=== PATIENT | female | born 1945 | race Caucasian/White ===

== ENCOUNTER → 2021-11-08 14:17 | Outpatient (CLI) | payer MEDICARE, OTHER, SELFPAY ==
--- NOTE | 2021-11-08 | DI.MRI.S_ITS ---
PROCEDURE: MR HEAD/BRAIN WO/W CON INDICATIONS: Other amnesia and abnormalities of gait TECHNIQUE: Noncontrast axial T1 spin echo, axial T2 fast spin echo, sagittal and axial FLAIR, coronal T2 fast spin echo, axial gradient echo, axial diffusion and ADC through the brain. After the administration of contrast, axial and coronal and sagittal 3D VIBE or T1 spin echo with fat saturation through the brain. COMPARISON: [facility], MR, BRAIN WITHOUT CONTRAST, 07/23/2016, 14:21. FINDINGS: Image quality: Excellent. CSF Spaces: Basal cisterns are patent. No extra-axial fluid collections. Ventricles are normal in size and shape. Brain: In the left frontal precentral gyrus near the vertex, there is a focus of popcorn like signal with associated old blood products measuring approximately 1 cm in total, unchanged from the prior exam 2017. Mild atrophy and white matter chronic ischemic change remains stable as well. Otherwise, there is no midline shift. No abnormal intracranial enhancement. The brainstem appears normal. Diffusion-weighted images demonstrate no acute infarct. Normal intravascular flow voids are present. Skull and face: Calvarial marrow is normal in signal. Orbits appear normal. Sinuses: Sinuses and mastoids appear clear. IMPRESSION: Stable left frontal cavernous hemangioma Atrophy and chronic ischemic change without acute infarct, hemorrhage or mass lesion Approved by: Erwin Chen M.D. on 11/09/2021 at 8:40
== END ==
PROVIDERS: PCP Family Medicine; Referring Provider Family Medicine; Visit Provider Family Medicine
DX: R26.89 Other abnormalities of gait and mobility (principal); R41.3 Other amnesia
CPT/HCPCS: 70553; A9579

== ENCOUNTER 2023-09-11 23:00 | Observation (INO) | payer MEDICARE, OTHER, SELFPAY ==
[2023-09-11 23:12] VITALS: BP 192/82; PULSE 49; RESP 18; TEMP 36.2; O2SAT 98; BMI 22.3
--- NOTE | 2023-09-11 23:15 | PC.NURSE ---
pt requesting to waiting outside in car, cellphone number given [phone] will call when room available
[2023-09-12] VITALS (38 sets, daily range): BP systolic 125–205; BP diastolic 68–134; PULSE 36–62; RESP 14–44; TEMP 36.3–36.8; O2SAT 95–100; BMI 22.3
--- NOTE | 2023-09-12 02:20 | PC.NURSE ---
pt called to place in room
--- NOTE | 2023-09-12 03:22 | ED.EYEPROB ---
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 reason in past she wasnot taking any aspirin) Dr. Aguayo patient seen evaluated by myself. Awake alert no issue. She does have heart rate in 36 but is completely asymptomatic and heart rate improved to 77. Caregiver at bedside reports that her memory issues and mental status are at baseline. Patient reports that she has had no further issues with her vision since she has been here. MRI is concerning for small acute to subacute infarction involving posterior and high frontal lobe cortex. There was concern an issue for antiplatelet medication with thrombocytopenia. However her platelets today are 130,000. Aspirin given Dr. Zambrano accepts patient. Critical Care Time <Luis Miguel Arshad MD - Last Filed: 09/12/23 23:23> Critical Care Time Critical Care Time: Yes Total Critical Care Time: 35 Attestation: The high probability of a clinically significant, sudden or life threatening deterioration of the [cerebrovascular, neurologic, cardiopulmonary] system(s) required my full and direct attention, intervention and personal management. The aggregate critical care time was [35] minutes. This time is in addition to time spent performing reported procedures but includes the following: [x] Data Review and interpretation [x] Patient assessment and monitoring of vital signs [x] Documentation [x] Medication orders and management Discharge Plan Departure Patient Disposition: Admitted as Observation Clinical Impression: CVA (cerebral vascular accident) Admit Date/Time: 09/12/23 10:13 Admit Provider: Wayne Zambrano
--- NOTE | 2023-09-12 03:25 | DI.CT.S_ITS ---
PROCEDURE: CT ANGIO HEAD AND NECK INDICATIONS: right vision loss TECHNIQUE: After the administration of intravenous contrast, 1 mm thick sections acquired from the aortic arch through the [place]. 3-dimensional udlysmp-qqvdkzfom-nypsxakqbt (MIP) and/or volume rendering reformats were acquired of the central intracranial vasculature and neck separately. For radiation dose reduction, the following was used: automated exposure control, adjustment of mA and/or kV according to patient size. COMPARISON: Same-day head CT noncontrast 06/13/2023. FINDINGS: Image quality: Diagnostic. BRAIN: CSF spaces: Ventricles are normal in size and shape. Basal cisterns are patent. No extra-axial fluid collections. Brain: Redemonstration of punctate calcification left vertex with adjacent 6 millimeter cortical hyperdensity. No other significant abnormality of the brain can be seen. Skull and face: Calvarium and facial bones appear intact, without suspicious lesions. Orbits appear normal. Sinuses: Sinuses and mastoids are clear. HEAD CT ANGIOGRAPHY: Anterior circulation: Intracranial internal carotid arteries are normal in size and flow. The flow within the paired anterior cerebral arteries is normal and symmetric. The flow within the middle cerebral arteries is normal and symmetric. The anterior communicating artery is seen. No aneurysms are seen. Posterior circulation: Visualized portions of the vertebral arteries demonstrate normal caliber, and join to form a normal appearing basilar artery. Flow within the posterior cerebral arteries is normal and symmetric. No aneurysms are seen. NECK CT ANGIOGRAPHY: Carotid system: The great vessels demonstrate a conventional anatomy as they arise from the aortic arch. The origins of the common carotid arteries appear patent. The common carotid arteries demonstrate normal caliber and courses. The bifurcation regions are both widely patent. The internal carotid arteries demonstrate normal calibers and courses. Posterior circulation: The origins of the vertebral arteries both appear widely patent. The more superior extracranial portions of both vertebral arteries also demonstrate normal courses and calibers. They join to form a normal appearing basilar artery. Soft tissues: Visualized neck soft tissues demonstrate no suspicious abnormalities. Bones: No suspicious bony lesions. Visualized cervical spine appears normally aligned. IMPRESSION: No significant intracranial arterial abnormality is seen. No significant abnormality is seen within the arteries of the neck. Any quantitative measurements of stenosis were performed using NASCET criteria. Approved by: Briana Dey M.D.,Ph.D. on 09/12/2023 at 8:18
[2023-09-12 04:26] LABS: Add Manual Diff / Slide Review NO; Basophils Absolute Auto 0 /uL (0-100); Basophils Percent Auto 0.4 % (0-2); Eosinophils Absolute Auto 200 /uL (0-450); Eosinophils Percent Auto 3.3 % (2-4); Hematocrit 38.3 % (36-46); Hemoglobin 12.7 g/dL (12.0-16.0); Lymphocytes Absolute Auto 1300 /uL (1100-4500); Lymphocytes Percent Auto 28.6 % (25-40); Mean Corpuscular HGB Conc 33.1 % (30-36); Mean Corpuscular Hemoglobin 29.8 PG (26-34); Mean Corpuscular Volume 89.9 fL (80-100); Monocytes Absolute Auto 600 /uL (0-900); Monocytes Percent Auto 12.7 % (3-14); Neutrophils Absolute Auto 2600 /uL (1500-7000); Platelet Count 131 X10^3/uL (150-400); Red Blood Cell Count 4.26 X10^6/uL (4.0-5.2); Red Cell Distribution Width 12.7 % (11.6-14.8); White Blood Cell Count 4.7 X10^3/uL (4.5-11.0)
--- NOTE | 2023-09-12 04:30 | EKG_ITS ---
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
[2023-09-12 04:35] LABS: PTT Partial Thromboplastin Tim 34 SECONDS (25.1-36.5)
[2023-09-12 04:37] LABS: Alanine Aminotransferase 20 IU/L (<35); Albumin 4.2 g/dL (3.5-5.0); Albumin Globulin Ratio 1.8 (1.0-2.8); Alkaline Phosphatase 70 U/L (38-126); Aspartate Aminotransferase 31 IU/L (14-36); BUN Creatinine Ratio 20.4 (6-22); Bilirubin Total 0.4 mg/dL (0.2-1.3); Blood Urea Nitrogen 20 mg/dL (7-17); Calcium 9.3 mg/dL (8.4-10.2); Carbon Dioxide 26 mmol/L (22-32); Chloride 107 mmol/L (98-107); Creatine Kinase 173 U/L (30-135); Estimated Glomerular Filt Rate 59 mL/min (>60); Ethanol (ETOH) < 10 mg/dL; Globulin 2.3 g/dL (1.7-4.1); Glucose 92 mg/dL (80-110); HEMOLYSIS 16 (0-50); Potassium 3.8 mmol/L (3.4-5.1); Sodium 138 mmol/L (137-145); Total Protein 6.5 g/dL (6.3-8.2)
[2023-09-12 04:48] LABS: Troponin I < 0.012 ng/mL (0.01-0.034)
--- NOTE | 2023-09-12 06:27 | DI.MRI.S_ITS ---
PROCEDURE: MR HEAD/BRAIN WO CON INDICATIONS: transient total right vision loss TECHNIQUE: Non-contrast axial T1 spin echo, axial T2 fast spin echo, sagittal and axial FLAIR, coronal T2 fast spin echo, axial gradient echo, axial diffusion and ADC through the brain. COMPARISON: [facility], CT, CT ANGIO HEAD AND NECK, 09/12/2023, 5:40. [facility], CT, CT HEAD/BRAIN WO CON, 09/12/2023, 3:58. FINDINGS: Image quality: Excellent. CSF spaces: Ventricles appear symmetric in size and shape. Basal cisterns are patent. No extra-axial fluid collections. Brain: No intracranial bleeds or mass effects. There is cerebral volume loss for age. There are periventricular and deep white matter chronic small vessel ischemic changes. Brainstem appears normal. Diffusion-weighted images show small foci of restricted diffusion involving height left frontal lobe. No other area of abnormal restricted diffusion is seen. No chronic ischemic insults. Normal intravascular flow voids are present. Skull and face: Calvarial bone marrow is normal in signal. Orbits are normal. Sinuses: Sinuses and mastoids are clear. IMPRESSION: 1. Finding is concerning for tiny foci of acute to subacute infarction involving posterior left high frontal lobe cortex. No other area of restricted diffusion. No acute intracranial bleed, midline shift or mass effect. 2. Age related volume loss. Dictated by: Larry Sears M.D. on 09/12/2023 at 9:45 Approved by: Laryr Sears M.D. on 09/12/2023 at 9:50
--- NOTE | 2023-09-12 06:28 | DI.ECHO.S_ITS ---
[facility]+ [facility] : : [address] : : [place] : : [id number] : : Phone: [phone] Echocardiogram Report + + :Name: ALEXIS GERMAIN Study Date: 09/13/2023 Height: 64 in : :Hospital ReadingLocation: Weight: 130 lb : : Gender: Female BSA: 1.6 m2 : :: 1945 Age: 78 yrs BP: 128/74 mmHg: :Reason For Study: LOST VISION IN RIGHT EYE : :Ordering Physician: PATRICA, : :EILEEN Performed By: Chandler Cortez : :Referring: EILEEN BURCIAGA : + + Interpretation Summary 1. The left ventricle contractility is normal. Estimated ejection fraction is greater than 55% with no segmental wall motion abnormalities. Mild concentric LVH. Grade 1 diastolic dysfunction present. 2. The right ventricular contractility is normal. 3. All cardiac chambers are of normal size. 4. There is mild aortic insufficiency noted without significant stenosis. 5. No obvious intracardiac shunts noted. 6. No obvious intracardiac masses nor thrombi appreciated. 7. No hemodynamically significant pericardial effusion present. Prominent anterior fat pad present. 8. The ascending aorta is mildly dilated without obvious dissection. Conclusion: Normal biventricular systolic function without significant valvular abnormalities Procedure: A two-dimensional transthoracic echocardiogram with color flow and Doppler was performed. The study quality was technically adequate. There is no prior echocardiogram noted for this patient. The patient was in sinus bradycardia with heart rates between 39-61 bpm during the exam. Left Ventricle: The left ventricle is normal in size. Left ventricular wall thickness is mildly increased. The ejection fraction is estimated to be 60- 65%. Right Ventricle: The right ventricle is normal size. The right ventricular systolic function is normal. Atria: The left atrial size is normal. Right atrial size is normal. The interatrial septum grossly appears intact with no obvious evidence for an atrial septal defect. Mitral Valve: The mitral valve is normal. There is no mitral valve stenosis. There has been no significant change since the previous study. Aortic Valve: The aortic valve is trileaflet. The aortic valve is moderately calcified. There is no aortic valve stenosis. There is mild aortic regurgitation. Tricuspid Valve: The tricuspid valve is normal. There is no tricuspid stenosis. No tricuspid regurgitation. Pulmonic Valve: The pulmonic valve is not well visualized. There is no pulmonic valvular stenosis. There is no pulmonic valvular regurgitation. Great Vessels: The aortic root is mildly dilated. The ascending aorta is moderately enlarged. The inferior vena cava was not visualized. Pericardium/ Pleura There is no pericardial effusion. There is no pleural effusion. MMode/2D Measurements & Calculations LVIDd: 4.8 cm LVOT diam: 1.8 cm LVIDs: 3.1 cm Ao root diam: 3.8 cm FS: 35.6 % asc Aorta Diam: 4.8 cm IVSd: 1.2 cm LVPWd: 1.2 cm LV campbell. diameter/BSA (cm/m^2): 2.9 LV sys. diameter/BSA (cm/m^2): 1.9 LA A2 area: 16.1 cm2 RA long axis: 4.0 cm LA A4 area: 14.7 cm2 RA area: 13.1 cm2 LA length (vol): 4.6 cm RA vol: 37.0 ml LA vol: 43.6 ml RA : 22.7 ml/m2 LA vol index: 26.8 ml/m2 RVD1 (basal): 2.9 cm RVD2 (mid): 2.2 cm TAPSE: 3.7 cm Doppler Measurements & Calculations Ao V2 max: 109.6 cm/sec LVOT Max Ebenezer: 95.2 cm/sec Ao V2 mean: 68.0 cm/sec LV V1 max P.6 mmHg Ao max P.8 mmHg LV V1 VTI: 25.5 cm Ao mean P.2 mmHg SANTY(I,D): 2.4 cm2 Ao V2 VTI: 26.8 cm SANTY(V,D): 2.2 cm2 sev ratio: 0.95 SANTY indexed to BSA (cm^2/m^2): 1.5 MV E max ebenezer: 32.8 cm/sec PA V2 max: 100.1 cm/sec MV A max ebenezer: 52.5 cm/sec PA V2 mean: 70.1 cm/sec MV E/A: 0.62 PA mean P.2 mmHg Med Peak E' Ebenezer: 3.5 cm/sec PA pr(Accel): 34.5 mmHg E/E' med: 9.5 Lat Peak E' Ebenezer: 3.1 cm/sec E/E' lat: 10.4 E/e' average: 9.9 MV dec time: 0.21 sec SV(LVOT): 65.3 ml Reading Physician:
--- NOTE | 2023-09-12 07:49 | PC.NURSE ---
Previous nurse didn't start nicardapine drip as she stated blood pressure was back in the range target of systolic of 170-180s that she received from overnight provider. This RN asked day shift provider who asked this RN to hold this medication.
--- NOTE | 2023-09-12 09:59 | PC.NURSE ---
Addendum entered by Jordi Puentes R.N. 09/12/23 10:46: Provider was also informed of sustained higher blood pressure and provider stated noted. No new ordered were issued. Original Note: This RN informed provider of patient pulse drop into the thirties immediately. Provider gave verbal order for additional ekg
--- NOTE | 2023-09-12 10:04 | EKG_ITS ---
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
[2023-09-12] MEDS: ASPIRIN 81 MG CHEW TAB 324 MG PO (10:40)
[2023-09-12] MEDS: SPIRONOLACTONE 25 MG TABLET PO (12:37)
--- NOTE | 2023-09-12 14:30 | P.HP_ITS ---
History of Present Illness History of Present Illness Date Patient Seen: 09/12/23 Time Patient Seen: 13:00 Chief complaint: lost vision rt eye Narrative: This is a 78 year old female with PMH of hyperaldosteronism, HTN, hypothyroid, chronic thrombocytopenia, hemangioma, recent workup of unyet diagnosed movement disorder of her left side including an MRI. MRI was performed on 08/22, now printed and placed in patient's chart, which showed a small acute stroke with the left frontal lobe, left frontal cavernoma, and meningioma, and small ischemic changes. She presented after a 15 minute episode of viusal loss with retinal sparing on the right side. This abated over the course of 15 minutes and has now resolved. She denied slurred speech, weakness, falls, or trauma. She presented early this morning to the ER after event happened yesterday evening around 7-7:30 pm yesterday. In the emergency room, patient was noted to be hypertensive. Plt was 131, the remainder of her labs were unremarkable. 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 Social History household members: family and friend(s) Smoking Status: Never smoker Meds Home Medications and Allergies Home Medications Medication Instructions Recorded Confirmed Type levothyroxine 88 mcg tablet 88 mcg PO DAILY 06/10/20 09/12/23 History (Synthroid) spironolactone 25 mg tablet 25 mg PO DAILY 06/10/20 09/12/23 History Allergies Allergy/AdvReac Type Severity Reaction Status Date / Time aspirin AdvReac Severe at risk of Verified 07/01/20 10:17 intracranial bleed NSAIDS (Non-Steroidal AdvReac Severe at risk of Verified 07/01/20 10:17 Anti-Inflamma intracranial bleed gluten AdvReac Verified 09/12/23 06:48 Sugars, Metabolically Active AdvReac Verified 09/12/23 06:48 nite shades AdvReac Uncoded 07/01/20 10:17 Review of Systems Review of Systems Narrative: All other systems reviewed with the patient and are negative unless otherwise stated. Exam Vital Signs (past 8 hours): - 09/12/23 06:31 09/12/23 06:31 09/12/23 07:00 Temperature Pulse Rate 40 L 48 L Respiratory Rate 16 19 Blood Pressure 203/88 H Pulse Oximetry 97 97 Oxygen Delivery Method Room Air 09/12/23 07:01 09/12/23 07:01 09/12/23 07:13 Temperature Pulse Rate 45 L Respiratory Rate 34 H Blood Pressure 180/77 H 192/87 H Pulse Oximetry 97 Oxygen Delivery Method 09/12/23 07:13 09/12/23 07:30 09/12/23 07:42 Temperature Pulse Rate 53 L 53 L Respiratory Rate 15 28 H Blood Pressure 181/84 H Pulse Oximetry 97 97 Oxygen Delivery Method 09/12/23 07:42 09/12/23 08:00 09/12/23 08:01 Temperature Pulse Rate 50 L 56 L Respiratory Rate 20 Blood Pressure 188/134 H Pulse Oximetry 98 99 Oxygen Delivery Method 09/12/23 08:01 09/12/23 08:29 09/12/23 08:29 Temperature Pulse Rate 62 52 L Respiratory Rate 24 19 Blood Pressure 202/86 H Pulse Oximetry 100 97 Oxygen Delivery Method 09/12/23 08:30 09/12/23 08:31 09/12/23 08:31 Temperature Pulse Rate 49 L 49 L Respiratory Rate 22 25 H Blood Pressure 186/87 H Pulse Oximetry 98 98 Oxygen Delivery Method 09/12/23 09:19 09/12/23 09:19 09/12/23 09:34 Temperature Pulse Rate 43 L Respiratory Rate 20 Blood Pressure 190/86 H 205/89 H Pulse Oximetry 99 Oxygen Delivery Method 09/12/23 09:34 09/12/23 10:00 09/12/23 10:29 Temperature Pulse Rate 48 L 36 L 42 L Respiratory Rate 18 30 H 19 Blood Pressure Pulse Oximetry 98 95 98 Oxygen Delivery Method 09/12/23 10:30 09/12/23 11:00 09/12/23 11:01 Temperature Pulse Rate 43 L 47 L Respiratory Rate 19 Blood Pressure 175/76 H Pulse Oximetry 99 98 Oxygen Delivery Method 09/12/23 11:01 09/12/23 11:06 09/12/23 11:23 Temperature 98.2 F Pulse Rate 43 L 48 L Respiratory Rate 14 Blood Pressure 192/74 H Pulse Oximetry 96 97 97 Oxygen Delivery Method Room Air Oxygen Delivery Method Room Air Narrative Exam Narrative: General:? Patient is well developed and well nourished, in no distress at this time. HEENT:? Normocephalic, atraumatic, extraocular muscles intact, oral pharynx is clear and mucous membranes are moist. Neck: supple and symmetric, trachea is midline, no cervical adenopathy. Negative for JVD Chest:? Normal AP diameter and contour without kyphoscoliosis, no tachypnea, equal chest rise bilaterally. Lungs:? CTA b/l no wheezing rhonchi or rales. Cardio:?RRR no m/r/g. Abdomen: S NT ND. No CVA tenderness. Musculoskeletal:? Muscle strength and tone are equal within normal limits, no deformity. Extremities: No edema or joint effusions. No cyanosis or clubbing. Skin:? Pale,? Warm to touch,dry and intact without rashes, ulcerations or petechiae.? Neuro:? Alert and orientated x3,? sensation to touch intact in all extremities, no gross deficits noted of cranial nerves. Psych:? Patient has a well-kept appearance, appropriate affect, mental status attitude thought context and judgment are appropriate for age. Objective ECG Impression: Sinus bradycardia with LAFB, no acute ischemia as interpreted by me. Labs 09/12/23 04:15 09/12/23 04:15 Labs: Laboratory Results - last 24 hr 09/12/23 04:15 WBC 4.7 RBC 4.26 Hgb 12.7 Hct 38.3 MCV 89.9 MCH 29.8 MCHC 33.1 RDW 12.7 Plt Count 131 L Neut % (Auto) 55.0 Lymph % (Auto) 28.6 Moore % (Auto) 12.7 Eos % (Auto) 3.3 Baso % (Auto) 0.4 Neut # (Auto) 2600 Lymph # (Auto) 1300 Moore # (Auto) 600 Eos # (Auto) 200 Baso # (Auto) 0 PT 11.0 INR 1.0 APTT 34 Sodium 138 Potassium 3.8 Chloride 107 Carbon Dioxide 26 BUN 20 H Creatinine 0.98 Estimated GFR 59 L BUN/Creatinine Ratio 20.4 Glucose 92 Calcium 9.3 Total Bilirubin 0.4 AST 31 ALT 20 Alkaline Phosphatase 70 Total Creatine Kinase 173 H Troponin I < 0.012 Total Protein 6.5 Albumin 4.2 Globulin 2.3 Albumin/Globulin Ratio 1.8 Ethyl Alcohol < 10 Assessment & Plan Assessment & Plan narrative: 1. Transient R central retinal artery occlusion / TIA - her previous symptoms are consistent with central retinal artery occlusion - in the setting of recent seemingly incidental finding on acute stroke on 08/22 on outside MRI (along with same subacute lesion seen today) concern for embolic disease. The location of her stroke does not match any presenting symptoms and do not correlate with her movement disorder that is being evaluated. - continue telemetry - TTE ordered - start asa 81 mg daily, check A1c, lipids and TSH - check ESR and CRP. Consider surgery if markedly elevated for temporal artery biopsy as patient does report frequent headaches that have been ongoing (though not consistent with GCA). 2. HTN - possibly reactive in setting of above - Will allow permissive HTN for 24 hours. Initial BP 192/80. Use medications cautiously with sinus bradycardia occasionally in the mid 40s. - continue home spironolactone and follow BP closely. 3. Hyperaldosteronism - continue spironolactone 4. History of hemangioma 5. 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 Dispo: patient admitted under observation status. Likely discharge home tomorrow if no recurrence of symptoms Additional history obtained via discussions with the ER provider. These discussions contributed to the creation of the above assessment and plan. I have reviewed patient's presenting documentation, labs, and imaging personally. Time-Based Coding :: [TOTAL MINUTES] spent with patient and on the chart (including review of chart, obtaining history, exam, reviewing outside data, placing orders, documenting exam and treatment plan, and counseling patient) on [DATE].
[2023-09-12 15:29] LABS: C-Reactive Protein Quant < 0.5 mg/dL (<1.0); Erythrocyte Sedimentation Rate 10 MM/HR (0-20)
--- NOTE | 2023-09-12 17:57 | PC.NURSE ---
Addendum entered by Cuca Bolanos R.N. 09/12/23 18:58: This RN attempted to put telemetry monitoring on the patient again. Patient stated not right now. This RN explained why we needed to monitor her heart. She said I will think about it but refused for the time being. Original Note: Day shift: Patient admitted to floor care this morning. Pt's BP running high - SBP 190s - and sinus bradycardia (low to mid 40s). MD Zambrano aware and ok'ed SBP up to 210 before intervention needed. Pt A&Ox4, though she will repeatedly ask the same questions over and over. She says My memory is not good. Walking into the patient's room this evening, patient had laid blankets all over the floor as if they were area rugs. This RN and PCT Silvano both told her that we couldn't lay blankets on the floor like that, that it was a tripping hazard and we didn't want her to fall. Pt told this RN that I hate policies like that. Then she threw down a blanket onto the ground and yelled Fuck! Then she slammed the door to the bathroom and turned the shower on. [place] Bustamante went to check in 10 minutes later. Pt was out of the shower but asked Robby to go away. Robby stated that she needed to put the library monitor back on. Patient refused. Will try again soon. Will continue to monitor.
[2023-09-12] MEDS: diazePAM 2 MG TABLET PO (21:45)
[2023-09-13] VITALS: O2SAT 96
[2023-09-13 04:00] VITALS: BP 128/74; PULSE 58; RESP 18; TEMP 36.5; O2SAT 99
[2023-09-13] MEDS: LEVOTHYROXINE 88 MCG TABLET PO (05:58)
[2023-09-13 07:07] LABS: Add Manual Diff / Slide Review NO; Basophils Absolute Auto 0 /uL (0-100); Basophils Percent Auto 0.2 % (0-2); Eosinophils Absolute Auto 100 /uL (0-450); Eosinophils Percent Auto 3.6 % (2-4); Hematocrit 38.3 % (36-46); Hemoglobin 12.8 g/dL (12.0-16.0); Lymphocytes Absolute Auto 1300 /uL (1100-4500); Lymphocytes Percent Auto 31.2 % (25-40); Mean Corpuscular HGB Conc 33.3 % (30-36); Mean Corpuscular Hemoglobin 30.1 PG (26-34); Mean Corpuscular Volume 90.4 fL (80-100); Monocytes Absolute Auto 600 /uL (0-900); Monocytes Percent Auto 14.7 % (3-14); Neutrophils Absolute Auto 2000 /uL (1500-7000); Neutrophils Percent Auto 50.3 % (50-75); Platelet Count 135 X10^3/uL (150-400); Red Blood Cell Count 4.24 X10^6/uL (4.0-5.2); Red Cell Distribution Width 12.5 % (11.6-14.8)
[2023-09-13 07:20] LABS: Alanine Aminotransferase 19 IU/L (<35); Albumin Globulin Ratio 1.7 (1.0-2.8); Alkaline Phosphatase 57 U/L (38-126); Aspartate Aminotransferase 29 IU/L (14-36); BUN Creatinine Ratio 21.3 (6-22); Bilirubin Total 0.5 mg/dL (0.2-1.3); Blood Urea Nitrogen 23 mg/dL (7-17); Calcium 9.7 mg/dL (8.4-10.2); Carbon Dioxide 24 mmol/L (22-32); Chloride 108 mmol/L (98-107); Cholesterol 191 mg/dL (140-199); Estimated Glomerular Filt Rate 53 mL/min (>60); Globulin 2.4 g/dL (1.7-4.1); Glucose 83 mg/dL (80-110); HDL Cholesterol 68 mg/dL (40-60); HEMOLYSIS < 15 (0-50); Hemoglobin A1C% w Est Avg Glu 5.4 % (4.0-6.0); LDL Cholesterol Calculated 111 mg/dL (<100); Magnesium 2.4 mg/dL (1.6-2.3); Potassium 4.4 mmol/L (3.4-5.1); Sodium 137 mmol/L (137-145); Total Protein 6.4 g/dL (6.3-8.2); Triglycerides 62 mg/dL (35-150)
[2023-09-13 08:00] VITALS: BP 171/84; PULSE 48; RESP 16; TEMP 36.8; O2SAT 99
[2023-09-13 08:22] LABS: Free T4, Direct Thyroxine 1.37 ng/dL (0.78-2.19)
--- NOTE | 2023-09-13 10:02 | P.DS_ITS ---
History of Present Illness History of Present Illness Chief complaint: lost vision rt eye Narrative: This is a 78 year old female with PMH of hyperaldosteronism, HTN, hypothyroid, chronic thrombocytopenia, hemangioma, recent workup of unyet diagnosed movement disorder of her left side including an MRI. MRI was performed on 08/22, now printed and placed in patient's chart, which showed a small acute stroke with the left frontal lobe, left frontal cavernoma, and meningioma, and small ischemic changes. She presented after a 15 minute episode of viusal loss with retinal sparing on the right side. This abated over the course of 15 minutes and has now resolved. She denied slurred speech, weakness, falls, or trauma. She presented early this morning to the ER after event happened yesterday evening around 7-7:30 pm yesterday. In the emergency room, patient was noted to be hypertensive. Plt was 131, the remainder of her labs were unremarkable. Discharge Providers Provider Date of admission: 09/12/23 10:13 Discharge Date: 09/13/23 Primary care physician: Shayan Patel MD Consults: None. Discharge provider: Karlos Alex MD Summary Hospital Course Discharge Diagnosis: 1. Transient R central retinal artery occlusion / TIA, present on admission and resolved. - her previous symptoms are consistent with central retinal artery occlusion - in the setting of recent seemingly incidental finding on acute stroke on 08/22 on outside MRI (along with same subacute lesion seen today) concern for embolic disease. The location of her stroke does not match any presenting symptoms and do not correlate with her movement disorder that is being evaluated. - continue telemetry - TTE ordered - start asa 81 mg daily, check A1c, lipids and TSH - check ESR and CRP. Consider surgery if markedly elevated for temporal artery biopsy as patient does report frequent headaches that have been ongoing (though not consistent with GCA). 2. HTN, present on admission and stable. - possibly reactive in setting of above - Will allow permissive HTN for 24 hours. Initial BP 192/80. Use medications cautiously with sinus bradycardia occasionally in the mid 40s. - continue home spironolactone and follow BP closely. 3. Hyperaldosteronism, present on admission and stable. - continue spironolactone 4. History of meningioma, present on admission and stable. 5. 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 - check TSH, continue home levothyroxine 88 mcg Hospital Course: She was admitted transient loss of vision of the right eye consistent with a retinal artery occlusion, her symptoms improved. She was started on aspirin. Recommendations were made for medical therapy for stroke with antiplatelet therapy and statin. She was at her baseline on the day of discharge but reluctant to accept recommendations for medications until talking to her primary care doctor, Dr. Patel. I did speak to her sister, and Tiffanie, twice and reinforced these recommendations. The patient will return to [facility] today and follow up with her primary care within the next several days. I will make phone contact with Dr. Patel to share my recommendations. Exam Vital Signs (past 8 hours): - 09/13/23 04:00 09/13/23 04:00 09/13/23 08:00 Temperature 97.7 F 98.3 F Pulse Rate 58 L 48 L Respiratory Rate 18 16 Blood Pressure 128/74 171/84 H Pulse Oximetry 99 99 99 Oxygen Delivery Method Room Air Oxygen Flow Rate 0 0 0 Oxygen Delivery Method Room Air Oxygen Flow Rate 0 Objective Labs 09/13/23 06:44 09/13/23 06:44 Labs: Laboratory Results - last 24 hr 09/12/23 09/13/23 15:05 06:44 WBC 4.0 L RBC 4.24 Hgb 12.8 Hct 38.3 MCV 90.4 MCH 30.1 MCHC 33.3 RDW 12.5 Plt Count 135 L Neut % (Auto) 50.3 Lymph % (Auto) 31.2 [place] % (Auto) 14.7 H Eos % (Auto) 3.6 Baso % (Auto) 0.2 Neut # (Auto) 2000 Lymph # (Auto) 1300 [place] # (Auto) 600 Eos # (Auto) 100 Baso # (Auto) 0 ESR 10 Sodium 137 Potassium 4.4 Chloride 108 H Carbon Dioxide 24 BUN 23 H Creatinine 1.08 H Estimated GFR 53 L BUN/Creatinine Ratio 21.3 Glucose 83 Hemoglobin A1c 5.4 Calcium 9.7 Magnesium 2.4 H Total Bilirubin 0.5 AST 29 ALT 19 Alkaline Phosphatase 57 C-Reactive Protein < 0.5 Total Protein 6.4 Albumin 4.0 Globulin 2.4 Albumin/Globulin Ratio 1.7 Triglycerides 62 Cholesterol 191 LDL Cholesterol, Calc 111 H HDL Cholesterol 68 H TSH 0.20 L Free T4 1.37 [facility] Medical History Cavernous hemangioma of brain Hyperaldosteronism 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 Transient R central retinal artery occlusion / TIA, present on admission and resolved. - her previous symptoms are consistent with central retinal artery occlusion 2. HTN, present on admission and stable. - possibly reactive in setting of above - Will allow permissive HTN for 24 hours. Initial BP 192/80. Use medications cautiously with sinus bradycardia occasionally in the mid 40s. 3. Hyperaldosteronism, present on admission and stable. - continue spironolactone 4. History of meningioma, present on admission and stable. 5. 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 - check TSH, continue home levothyroxine 88 mcg Plan of Treatment: Discharge home, resume all usual medications, recommendations are for statin and aspirin. These been sent to her pharmacy. She will discuss with her primary 1st. Discharge Plan Discharge Plan Patient Disposition: Home Provider Discharge Comment: Stable for discharge home with aspirin and atorvastatin. She will have very close follow up with Dr. Patel, her primary care physician. Discharge orders & Medications Prescriptions: New atorvastatin 40 mg tablet 40 mg PO BEDTIME Qty: 30 1RF aspirin 81 mg capsule 81 mg PO DAILY Qty: 30 0RF Continued levothyroxine [Synthroid] 88 mcg tablet 88 mcg PO DAILY spironolactone 25 mg tablet 25 mg PO DAILY Follow up/Referrals: Shayan Patel MD [Primary Care Provider] - Diet/Activity/Treatments Diet: Diet as Tolerated Visit Report/Discharge Packet Instructions: DI for Transient Ischemic Attack Stand Alone Forms: Patient Portal/API, Stroke Signs & Symptoms Discharge Data Primary Care Provider: Shayan Patel Attending Provider: Wayne Zambrano Date/Time: 09/12/23 10:13
[2023-09-13] MEDS: diazePAM 2 MG TABLET PO (10:09)
[2023-09-13] MEDS: ASPIRIN EC 81 MG TABLET PO (10:09)
[2023-09-13] MEDS: SPIRONOLACTONE 25 MG TABLET PO (10:09)
--- NOTE | 2023-09-13 11:11 | CM.DANOTE ---
DCP Assessment Note Pt is a 78yo F here after about 15min episode of vision loss. resolved by the time she was admitted. Was found to have a TIA. PCP Dr. Patel Payer Medicare and commercial insurance. SPOUT POSITIONER reviewed EMR. Per Chart, symptoms have resolved at this time. [place] Per RN notes, pt was refusing telemetry monitoring and was acting odd with staff, see RN note for more. Per hospitalist in morning rounds, pt cleared for dc home today. Approved priority boarding pass. Per RN, pt ambulating fine. Per RN, concerned pt not accurate historian. Per RN, unsure of relationship of person that brought her into the ED. SPOUT POSITIONER entered room and introduced self and role. pt lives alone on [address] but has a Care team that helps her at home. Named various people that assist with her chores/managing her house (Betsy Santos, [place]. Person that [place] her in is Friend Daniel, who helps her with CG needs at home but was hesitant to specify what exactly he helps her with. He is her plan for her ride home. Pt named a few other people that could take her home if needed. Pt would appreciate a boarding pass. SPOUT POSITIONER completed, printed, and handed pt medical priority boarding pass. SPOUT POSITIONER gave pt information on [facility] [place] ([email or web address]) for more house cleaning information. Pt appreciative. Daniel arrived during conversation and reports he is able to take her home. Pt denies other CM needs at this time P: home today with Daniel to transport and ferry. No identified additional barriers to safe dc home at this time. 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 Yes Advance Directives on File No History Provided By Patient Prior Living Arrangements House Household Members none Type of transporation used prior to Drives own vehicle admit Independent with ADL's Yes Is patient alert and oriented? Yes Needs Assistance With Home Chores / Shopping Barriers to Discharge No Discharge Plan Home Transportation Arrangement friend in [place] and ferry Referrals Initiated None needed Review Status In Process Please Provide Date Initial DC 09/13/23 Assessment Was Performed Next Review Type Continued Stay Review
--- NOTE | 2023-09-13 12:17 | PC.NURSE ---
Dayshift: Provided patient education to pt and friend Daniel. PIV d/c'ed. All belongings with pt, meds from pharmacy returned to pt. Pt and friend stated all questions answered. Pt escorted out to exit with friend via wheelchair by FOSTER Rae.
== END 2023-09-13 11:30 | disposition home or self-care (01) ==
LOC: ED 09-12 10:12 → AC 09-12 10:14
PROVIDERS: Emergency Medicine; Admitting Provider Internal Medicine; Emergency Provider Emergency Medicine; PCP Family Medicine; Referring Provider Emergency Medicine; Visit Provider Internal Medicine
DX: G45.9 Transient cerebral ischemic attack, unspecified (principal); H53.8 Other visual disturbances; E03.9 Hypothyroidism, unspecified; I10 Essential (primary) hypertension; E26.9 Hyperaldosteronism, unspecified
CPT/HCPCS: 36415; 70450; 70496; 70498; 70551; 80053; 80061; 80320; 82550; 83036; 83735; 84439; 84443; 84484; 85025; 85610; 85651; 85730; 86140; 93005; 93306; 99284; 99291; G0378